=== PATIENT | male | born 1960 ===

== ENCOUNTER 2017-10-10 10:10 | Emergency (ER) | payer OTHER ==
--- NOTE | 2017-10-10 12:51 | UC ---
Skin Complaint HPI - HPI Summary HPI Summary: 15 cm bulls eye erythema right axilla--no specific memory of tick bite---but is outside all the time with horses - History of Current Complaint Chief Complaint: [facility] Time Seen by Provider: 10/10/17 12:45 Stated Complaint: TICK BITE Hx Obtained From: Patient Onset/Duration: Sudden Onset, Still Present Timing: Constant Pain Intensity: 2 Location: Discrete - right axilla and chest wall Character: Redness Aggravating Factor(s): Nothing Associated Signs & Symptoms: Positive: Negative - Allergy/Home Medications Allergies/Adverse Reactions: Allergies Allergy/AdvReac Type Severity Reaction Status Date / Time No Known Allergies Allergy Verified 10/10/17 10:44 Review of Systems Constitutional: Negative Skin: Other - bulls eye rash right axilla and chest wall Eyes: Negative ENT: Negative Respiratory: Negative Cardiovascular: Negative Gastrointestinal: Negative Genitourinary: Negative Motor: Negative Neurovascular: Negative Musculoskeletal: Negative Neurological: Negative Psychological: Negative Is Patient Immunocompromised?: No All Other Systems Reviewed And Are Negative: Yes PMH/Surg Hx/FS Hx/Imm Hx Previously Healthy: Yes - Surgical History Surgical History: Yes Surgery Procedure, Year, and Place: appy, miniscus, adult circ, deviated ceptum repair - Family History Known Family History: Positive: None - Social History Occupation: Employed Full-time Lives: With Family Alcohol Use: Daily Substance Use Type: None Smoking Status (MU): Never Smoked Tobacco - Immunization History Most Recent Tetanus Shot: 10/04/11 Physical Exam Triage Information Reviewed: Yes Appearance: Well-Appearing, No Pain Distress, Well-Nourished Vital Signs: Initial Vital Signs Temp 97.9 F 10/10/17 10:38 Pulse 78 10/10/17 10:38 Resp 18 10/10/17 10:38 BP 91/59 10/10/17 10:38 Pulse Ox 98 10/10/17 10:38 Vital Signs Reviewed: Yes Eye Exam: Normal Eyes: Positive: Conjunctiva Clear ENT Exam: Normal ENT: Positive: Normal ENT inspection, Hearing grossly normal. Negative: Trismus , Muffled voice, Hoarse voice Dental Exam: Normal Neck exam: Normal Neck: Positive: Supple, Nontender Respiratory Exam: Normal Respiratory: Positive: Chest non-tender, No respiratory distress, No accessory muscle use Cardiovascular Exam: Normal Cardiovascular: Positive: RRR, Pulses Normal, Brisk Capillary Refill Musculoskeletal Exam: Normal Musculoskeletal: Positive: Strength Intact, ROM Intact, No Edema Neurological Exam: Normal Neurological: Positive: Alert, Muscle Tone Normal Psychological Exam: Normal Skin Exam: Other Skin: Positive: Other - 15 cm diameter bulls eye rash right axilla and chest wall Course/Dx - Course Course Of Treatment: lab studies, start dixycycline, sun protection advised - Diagnoses Provider Diagnoses: erythema migranes right chest wall and axilla Discharge - Sign-Out/Discharge Documenting (check all that apply): Patient Departure - Discharge Plan Condition: Stable Disposition: HOME Prescriptions: DOXYcycline CAP(*) [DOXYcycline 100MG CAP(*)] 100 mg PO BID #[id number] cap Patient Education Materials: Lyme Disease (ED) Referrals: Cosme Dixon MD [Primary Care Provider] - 1 Week - Billing Disposition and Condition Condition: STABLE Disposition: Home
[2017-10-10 13:07] VITALS: BP 105/68
== END 2017-10-10 13:07 | disposition home or self-care (01) ==
LOC: UCEAST 10:10
DX: A26.0 Cutaneous erysipeloid (principal)
CPT/HCPCS: 86617; 86618; 99212; G0463